=== PATIENT | male | born 1995 | race Caucasian/White ===

== ENCOUNTER 2020-02-25 09:29 | Outpatient (RCR) | payer OTHER ==
[~2020-02-25 09:29] MED LIST: NORCO 325 MG-51 TAB PO
== END 2020-03-08 12:45 | disposition home or self-care (01) ==
LOC: WSOH 09:29
DX: S46.011A Strain of muscle(s) and tendon(s) of the rotator cuff of right shoulder, initial encounter (principal); Y99.0 Civilian activity done for income or pay